=== PATIENT | male | born 1980 | race Caucasian/White ===

== ENCOUNTER 2016-09-26 11:28 | Emergency (ER) | payer MEDICAID ==
[~2016-09-26] VITALS: Ht 175.3 cm; Wt 95.3 kg
[~2016-09-26 11:28] MED LIST: ALBUTEROL-200 PUFFS/ IH; MOTRIN800 MG PO; NOMEDS; SEPTRA DS 800 M1 TAB PO; SULFAMETHOXAZOL1 TA6 PO; TESSALON PERLE100 MG PO; ZITHROMAX 250M250 MG PO
[2016-09-26] MEDS ORDERED: KEFLEX 500MG.500 MG PO (12:05)
--- NOTE | 2016-09-26 12:06 | Emergency Room Report ---
History of Present Illness Time Seen by MD Hernandez Presenting Problem in Triage Pt arrived:Walked Presenting Problem:PT HAS LAC TO TOP OF RIGHT HAND. 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 N Clinical Suspician of Infection? N Mental Status: 1 - Regular (Normal Baseline) Sepsis Risk:Low Sepsis Risk Have you (or family members/close friends) recently traveled outside the [place]? N If Yes, where/when: Have you had exposure to infectious disease within the past month? N TB? Other? 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 No loss of movement or sensation. Came to the ED immediately for stitches. Source patient, RN notes reviewed, family Exam Limitations no limitations ALLERGIES Coded Allergies: No Known Allergies (06/27/16) Home Medications Active Scripts Azithromycin (Zithromax 250 Mg) 250 MG PO DAILY #4 TAB Prov: 12/11/14 BENZONATATE (Benzonatate) 100 MG PO BID #20 CAP Prov: 12/11/14 Reported Medications Albuterol (Albuterol-Hfa Inhaler) 1 PUFF IH Q4HP PRN BREATHING History Medical History General CAD? No Angina: No [place]: No Hypertension? No Hyperlipidemia? No CHF? No DVT? No PE? No COPD? No Asthma? Yes Anemia? No GERD? No Gastric ulcers? No GI Bleed? No Hernia? No Thyroid Problems? No Hypothyroidism? No CVA? No Seizures? No Diabetes? No Renal Insuffiency? No End Stage Renal Disease? No UTI? No Stones? No BPH? No GB Disease: No Nephritic Syndrome? No Asplenia? No Hepatitis? No Sickle Cell Disease? No Arthritis? No Migraines? No Cataracts? No Glaucoma? No MRSA? No HIV? No TB? No Anxiety? No Depression? No Cancer? No Immunization Hx DT/Tetanus 1-4 YRS Surgical Hx Previous Surgery?N Social History Smoking Hx Smoker: Former Smoker Tobacco: Yes Type Cigarettes Packs/day < 1 Pack Alcohol Alcohol: No Review of Systems All Other Systems Reviewed and Negative Constitutional no symptoms reported Eyes no symptoms reported ENT no symptoms reported. Respiratory no symptoms reported Cardiovascular no symptoms reported Gastrointestinal no symptoms reported Genitourinary no symptoms reported. Musculoskeletal no symptoms reported Skin see HPI Psychiatric/Neurological no symptoms reported Physical Exam Vital Signs Vital Signs Date Time Temp Pulse Resp B/P Pulse O2 O2 Flow FiO2 Ox Delivery Rate 09/26 1158 58 18 141/72 97 09/26 1132 98.4 69 18 140/70 97 - WBC >12,000 or <4,000 or 10% bands? 2 or more SIRS Criteria Met? B/P:141/72 MAP:93 Creatinine >2.0? UA output<0.5ml/kg/hr for 2 hrs? Platelet count >100,000? Lactate >2.0mmol/1? INR >1.2 or PTT > than 60 sec? Evidence of Organ Dysfunction? Provider documented clinical suspician of infection? N Sepsis Criteria Count: 0 Sepsis Risk: Low Sepsis Risk General Appearance normal appearance, WD/WN Eye Exam - bilateral eye normal exam, bilateral eye PERRL, bilateral eye EOMI Ear, Nose, Throat hearing grossly normal, normal ENT inspection Neck normal inspection, non-tender, supple, full range of motion Respiratory Status Yes: trachea midline, chest symmetrical, non tender chest. No: respiratory distress. Lung Sounds bilateral: normal breath sounds, lungs clear. 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 Medical Decision Making LABS/Meds/Orders Pt receiving controlled substance in ED? No Results/Orders Current Medication Orders Sig/George Start time Last Medication Dose Route Stop Time Status Admin Ondansetron HCl 0 .STK-MED ONE 09/26 1156 DC .ROUTE Lidocaine HCl 0 .STK-MED ONE 09/26 1140 DC .ROUTE Departure Departure Time of Disposition 1203 Disposition DC Home or Self Care(routine) Clinical Impression Primary Impression: Laceration of hand without complication, excluding fingers Condition STABLE Referrals Brandy Chin MD Additional Instructions 1- off work 2 days 2- wound recheck with dr stock in 2 days. 3- rest, ice and elevation. 4- start abx 5- return if fever or rash. Discharge Counseling Counseled pt/family regarding diagnosis, test results, medications/RX, home care, follow up needs Prescriptions Current Visit Scripts CEPHALEXIN (Keflex 500MG Capsule) 500 MG PO Q8 #21 CAP ED Critical Care Critical Care No If Critical Care minutes are documented, the time involved in the performance of seperately reportable procedures was not counted toward critical care time documented. I directly delivered medical care to this critically ill and/or injured patient. Timely evaluation and treatment was necessary to address the significant organ system(s) dysfunction present in this patient. at 1206
[2016-09-26 12:21] VITALS: BP 141/72
--- OUTSIDE RECORDS SUMMARY | 2016-09-26 22:09 | External Medical Summary Rpt ---
Author Author , WOODROW TROY Address Unknown Phone Care Team Providers Care Experience Designer Name Role Phone HOLDEN CANELA Unavailable Unavailable MAXX HOLDEN MAXX, ARNOLD Unavailable Unavailable MAXX ARY JAIMES MD, Unavailable Unavailable ARY TATE MD, Unavailable Unavailable DIOGENES TATE MD [facility] Unavailable Unavailable INC, [facility] Unavailable Unavailable PLLC, [facility] SOTINGEANU, Unavailable Unavailable SOTINGEANU SOTINGEANU MARLO, Unavailable Unavailable SOTINGEANU MARLO Purpose Continuity of Care Document - 05-29-2012 through 2016 Problems Code Diagnosis DOS Provider Status A084 VIRAL 06-27-2016 [place] INTESTINAL [facility] INFECTION INC UNSPECIFIED B349 VIRAL 06-27-2016 [facility]PEC[facility]IED [facility] L259 UNSPECIFIED 09-01-2015 HOLDEN MAXX CONTACT DERMATITIS UNSPECIFIED CAUSE M779 ENTHESOPATH 09-01-2015 HOLDEN LILLY Y UNSPECIFIED [id number] UNSPECIFIED 04-25-2015 HOLDEN MAXX ASTHMA WITH STATUS ASTHMATICUS K589 IRRITABLE 04-25-2015 HOLDEN MAXX BOWEL SYNDROME WITHOUT DIARRHEA J209 ACUTE 12-11-2014 [place] BRONCHITIS [facility] UNSPECIFIED INC J40 BRONCHITIS 12-11-2014 [facility] SPEC[facility]IED PLL[facility] ACUTE OR CHRONIC Z720 TOBACCO USE 12-11-2014 [facility] INC 60313 ASTHMA 10-29-2013 HOLDEN MAXX UNSPECIFIED WITH STATUS ASTHMATICUS 354.0 354.0 12-06-2012 [facility] SYNDROME 493.90 493.90 12-06-2012 [place] ASTHMA, [facility] 787.91 787.91 05-29-2012 [facility] Allergies, Adverse Reactions, Alerts Type Allergy to substance Adverse Reaction to Substance Substance Reaction Severity NO KNOWN ALLERGIES Unknown Unknown Clinical Alert Notifications Alert Asthma: no influenza vaccine in the last 365 days Medications Na ND Rx Da Fi Fi Am Da Di Ph RX Ph St me C No te ll ll ou ys ag ar # ys at rm s nt no ma ic us Or Da si cy ia de te s n re d DI 00 02 03 12 30 00 EA Ac CY 37 -2 -[address] ti CL 81 5- 4- 00 00 SI ve OM 61 20 20 0 43 DE IN 00 17 17 50 E 5 94 PH 10 AR MA MG CY CA OF PS CY UL NT E HI AN A IN C DI 00 12 01 12 30 00 EA Ac CY 37 -2 -[address] ti CL 81 2- 7- 00 00 SI ve OM 61 20 20 0 43 DE IN 00 16 17 50 E 5 94 PH 10 AR MA MG CY CA OF PS CY UL NT E HI AN A IN C Vital Signs 12-06-2012 08:34 Name Value Interpretat Reference Comment ion Range BP 69 mm[Hg] Diastolic BP Systolic 107 mm[Hg] Heart 62 /min Rate/Pulse O2% 99 % Respiratory 20 /min Rate 12-06-2012 08:33 Name Value Interpretat Reference Comment ion Range BP 69 mm[Hg] Diastolic BP Systolic 107 mm[Hg] Heart 62 /min Rate/Pulse O2% 99 % Respiratory 20 /min Rate 05-29-2012 14:44 Name Value Interpretat Reference Comment ion Range BP 70 mm[Hg] Diastolic BP Systolic 110 mm[Hg] Heart 63 /min Rate/Pulse O2% 97 % Respiratory 18 /min Rate 05-29-2012 13:29 Name Value Interpretat Reference Comment ion Range BP 68 mm[Hg] Diastolic BP Systolic 118 mm[Hg] Heart 72 /min Rate/Pulse O2% 97 % Respiratory 18 /min Rate Procedures Procedure DOS Code Location Performer Comment CUL BACT 49141 [facility]T [facility] URINE INC INC BLOOD/STO OL AEROBIC ISOL UNCLASSIF J3490 [facility] IED DRUGS 7 [facility] INC INC IAADI 21033 [facility] INFLUENZA 7 [facility] B VIRUS INC INC IAADI 71564 [facility] INFFLUENZ 7 [facility] [place] [address] RASHEEDA VANESSA STREPTOCO 7 [facility] CCUS INC INC GROUP A INJ J0702 HOLDEN HATCH BETAMETHA 6 MAXX MAXX SONE ACETATE & PHOSPHATE 3 MG RADIOLOGI 33612 [facility]EDA VANESSA C EXAM 5 [facility] CHEST 2 INC INC VIEWS FRONTAL&L ATERAL UNCLASSIF J3490 [facility] IED DRUGS 5 [facility] INC INC APPLICATI 93.54 ARY ON ATIF GAGE SPLINT Encounters Encounter Start End Date Code Location Performer Type Date EMERGENCY 46184 [facility] 7 7 [facility] T VISIT LOW/MODER SEVERITY HOSPITAL RAS[facility]EDA - 7 7 [facility] OUTPATIEN INC T EMERGENCY 85355 MARSHAL MARES 7 7 PHYSICIAN U [facility] S, [facility] T VISIT HIGH/URGE NT SEVERITY OFFICE 45780 HOLDEN HATCH OUTPATIEN 6 6 MAXX MAXX T VISIT 15 MINUTES OFFICE 55323 HOLDEN HATCH OUTPATIEN 6 6 MAXX MAXX T VISIT 15 MINUTES EMERGENCY 70966 MARSHAL MARES 5 5 PHYSICIAN U MARLO [facility] S, [facility] T VISIT MODERATE SEVERITY EMERGENCY 18759 [facility] 5 5 [facility] T VISIT LOW/MODER SEVERITY HOSPITAL RAS[facility]A - 5 5 [facility] OUTPATIEN INC T OFFICE 33243 HOLDEN SHERWOOD 4 4 MAXX MAXX T NEW 30 MINUTES Emergency KEYUR JAIMES MD (ER) 3 08:19 3 08:34 [facility] Emergency KEYUR TATE MD (ER) 3 13:09 3 14:45 [facility]
--- OUTSIDE RECORDS SUMMARY | 2016-09-26 22:09 | External Medical Summary Rpt ---
Author Author , WOODROW TROY Address Unknown Phone [email or web address] Care Team Providers Care Sales Representative Cash Registers Name Role Phone HOLDEN CANELA Unavailable Unavailable MAXX HOLDEN MAXX, ARNOLD Unavailable Unavailable MAXX ARY JAIMES MD, Unavailable Unavailable ARY TATE MD, Unavailable Unavailable DIOGENES TATE MD [facility] Unavailable Unavailable INC, [facility] Unavailable Unavailable PLLC, [facility] SOTINGEANU, Unavailable Unavailable SOTINGEANU SOTINGEANU MARLO, Unavailable Unavailable SOTINGEANU MARLO Purpose Continuity of Care Document - 05-29-2012 through 2016 Problems Code Diagnosis DOS Provider Status A084 VIRAL 06-27-2016 [place] INTESTINAL [facility] INFECTION INC UNSPECIFIED B349 VIRAL 06-27-2016 [facility]NSPEC[facility]IED [facility] L259 UNSPECIFIED 09-01-2015 HOLDEN MAXX CONTACT DERMATITIS UNSPECIFIED CAUSE M779 ENTHESOPATH 09-01-2015 HOLDEN LILLY Y UNSPECIFIED V85025 UNSPECIFIED 04-25-2015 HOLDEN MAXX ASTHMA WITH STATUS ASTHMATICUS K589 IRRITABLE 04-25-2015 HOLDEN MAXX BOWEL SYNDROME WITHOUT DIARRHEA J209 ACUTE 12-11-2014 [place] BRONCHITIS [facility] UNSPECIFIED INC J40 BRONCHITIS 12-11-2014 [facility] SPECIFIED PLL[facility] ACUTE OR CHRONIC Z720 TOBACCO USE 12-11-2014 [facility] INC 16505 ASTHMA 10-29-2013 HOLDEN MAXX UNSPECIFIED WITH STATUS ASTHMATICUS 354.0 354.0 12-06-2012 [facility] SYNDROME 493.90 493.90 12-06-2012 [place] ASTHMA, [facility] 787.91 787.91 05-29-2012 [facility] Allergies, Adverse Reactions, Alerts Type Allergy to [...] DOS Code Location Performer Comment CUL BACT 06539 [facility] XCPT 7 [facility] URINE INC INC BLOOD/STO OL AEROBIC ISOL UNCLASSIF J3490 [facility] IED DRUGS 7 [facility] INC INC IAADI 86304 [facility] V[facility]SA INFLUENZA 7 [facility] B VIRUS INC INC IAADI 97724 [facility] V[facility] INFFLUENZ 7 [facility] [place] [address] RASHEEDA VANESSA STREPTOCO 7 [facility] H[facility] CCUS INC INC GROUP A INJ J0702 HOLDEN HATCH BETAMETHA 6 MAXX MAXX SONE ACETATE & PHOSPHATE 3 MG RADIOLOGI 69936 RASHEEDA VANESSA C EXAM 5 [facility] CHEST 2 INC INC VIEWS FRONTAL&L ATERAL UNCLASSIF J3490 RAS[facility]A VANESSA IED DRUGS 5 [facility] INC INC APPLICATI 93.54 ARY ON ATIF GAGE SPLINT Encounters Encounter Start End Date Code Location Performer Type Date EMERGENCY 36889 [facility] 7 7 [facility] T VISIT LOW/MODER SEVERITY HOSPITAL RAS[facility]A - 7 7 [facility] OUTPATIEN INC T EMERGENCY 24395 MARSHAL MARES 7 7 PHYSICIAN U [facility] S, [facility] T VISIT HIGH/URGE NT SEVERITY OFFICE 47374 HOLDEN HATCH OUTPATIEN 6 6 MAXX MAXX T VISIT 15 MINUTES OFFICE 78412 HOLDEN HATCH OUTPATIEN 6 6 MAXX MAXX T VISIT 15 MINUTES EMERGENCY 67904 MARSHAL MARES 5 5 PHYSICIAN U MARLO [facility] S, [facility] T VISIT MODERATE SEVERITY EMERGENCY 55889 [facility] 5 5 [facility] T VISIT LOW/MODER SEVERITY HOSPITAL RASHEEDA - 5 5 [facility] OUTPATIEN INC T OFFICE 22581 HOLDEN SHERWOOD 4 4 MAXX MAXX T NEW 30 MINUTES Emergency KEYUR JAIMES MD (ER) 3 08:19 3 08:34 [facility] Emergency KEYUR TATE MD (ER) 3 13:09 3 14:45 [facility]
--- OUTSIDE RECORDS SUMMARY | 2016-09-26 22:09 | External Medical Summary Rpt ---
Author Author , WOODROW TROY Address Unknown Phone [email or web address] Care Team Providers Care Sewing Machine Operator Paper Bags Name Role Phone HOLDEN MAXX, HOLDEN Unavailable Unavailable MAXX HOLDEN MAXX, HOLDEN Unavailable Unavailable MAXX [facility] Un[facility], Unavailable Unavailable PLL[facility], [facility] SOTINGEANU, Unavailable Unavailable SOTINGEANU SOTINGEANU MARLO, Unavailable Unavailable SOTINGEANU MARLO Purpose Continuity of Care Document - 10-29-2013 through 2016 Problems Code Diagnosis DOS Provider Status A084 VIRAL 06-27-2016 [facility] [facility] INFECTION INC UNSPECIFIED B349 VIRAL 06-27-2016 [facility]NSPEC[facility]IED PLLC L259 UNSPECIFIED 09-01-2015 HOLDEN LILLY CONTACT DERMATITIS UNSPECIFIED CAUSE M779 ENTHESOPATH 09-01-2015 HOLDEN LILLY Y UNSPECIFIED P52145 UNSPECIFIED 04-25-2015 HOLDEN LILLY ASTHMA WITH STATUS ASTHMATICUS K589 IRRITABLE 04-25-2015 HOLDEN LILLY BOWEL SYNDROME WITHOUT DIARRHEA J209 ACUTE 12-11-2014 [place] BRONCHITIS [facility] UNSPECIFIED INC J40 BRONCHITIS 12-11-2014 [facility] SPECIFIED PLLC ACUTE OR CHRONIC Z720 TOBACCO USE 12-11-2014 [facility] INC 97817 ASTHMA 10-29-2013 HOLDEN LILLY UNSPECIFIED WITH STATUS ASTHMATICUS Medications Na ND Rx Da Fi Fi [...] NT E HI AN A IN C Procedures Procedure DOS [place] [address] RAS[facility] STREPTOCO 7 [facility] CCUS INC INC GROUP A UNCLASSIF J3490 [facility] IED DRUGS 7 [facility] INC INC CUL BACT 42737 RAS[facility]A VANESSA XCPT 7 [facility] URINE INC INC BLOOD/STO OL AEROBIC ISOL IAADI 37260 RAS[facility]A VAN[facility]SA INFLUENZA 7 [facility] B VIRUS INC INC IAADI 66776 RAS[facility] VANESSA INFFLUENZ 7 [facility] A A VIRUS INC INC INJ J0702 HOLDEN HATCH BETAMETHA 6 MAXX MAXX SONE ACETATE & PHOSPHATE 3 MG UNCLASSIF J3490 [facility]ANESSA IED DRUGS 5 [facility] INC INC RADIOLOGI 26278 RASHEEDA VANESSA C EXAM 5 [facility] CHEST 2 INC INC VIEWS FRONTAL&L ATERAL Encounters Encounter Start End Date Code Location Performer Type Date EMERGENCY 54256 MARSHAL MARES 7 7 PHYSICIAN U [facility], [facility] T VISIT HIGH/URGE NT SEVERITY HOSPITAL [facility] - 7 7 [facility] T EM[facility] 40291 [facility]A 7 7 [facility] T VISIT LOW/MODER SEVERITY OFFICE 55564 HOLDEN SANDERSEN 6 6 MAXX MAXX T VISIT 15 MINUTES OFFICE 71635 HOLDEN SHERWOOD 6 6 MAXX MAXX T VISIT 15 MINUTES EMERGENCY 05770 MARSHAL MARES 5 5 PHYSICIAN U MARLO [facility] T VISIT MODERATE SEVERITY HOSPITAL RAS[facility]EDA - 5 5 [facility] 32568 [facility] T VISIT LOW/MODER SEVERITY OFFICE 09708 HOLDEN SHERWOOD 4 4 MAXX MAXX T NEW 30 MINUTES
--- OUTSIDE RECORDS SUMMARY | 2016-09-26 22:09 | External Medical Summary Rpt ---
Author Author , WOODROW TROY Address Unknown Phone [email or web address] Providers Care Fugitive Investigator Name Role Phone HOLDEN MAXX, HOLDEN Unavailable Unavailable MAXX HOLDEN MAXX, HOLDEN Unavailable Unavailable MAXX [facility] Unavailable Unavailable INC, [facility] Unavailable Unavailable PLL[facility], [facility] SOTINGEANU, Unavailable Unavailable SOTINGEANU SOTINGEANU MARLO, Unavailable Unavailable SOTINGEANU MARLO Purpose Continuity of Care Document - 10-29-2013 through 2016 Problems Code Diagnosis DOS Provider Status A084 VIRAL 06-27-2016 [facility] [facility] INFECTION INC UNSPECIFIED B349 VIRAL 06-27-2016 [facility] UNSPECIFIED PLLC L259 UNSPECIFIED 09-01-2015 HOLDEN LILLY CONTACT DERMATITIS UNSPECIFIED CAUSE M779 ENTHESOPATH 09-01-2015 HOLDEN LILLY Y UNSPECIFIED [id number] UNSPECIFIED 04-25-2015 HOLDEN LILLY ASTHMA WITH STATUS ASTHMATICUS K589 IRRITABLE 04-25-2015 HOLDEN LILLY BOWEL SYNDROME WITHOUT DIARRHEA J209 ACUTE 12-11-2014 [place] BRONCHITIS [facility] UNSPECIFIED INC J40 BRONCHITIS 12-11-2014 [facility], SPECIFIED PLLC ACUTE OR CHRONIC Z720 TOBACCO USE 12-11-2014 [facility] INC 33331 ASTHMA 10-29-2013 HOLDEN LILLY UNSPECIFIED WITH STATUS [...] DOS [place] [address] RASHEEDA VANESSA STREPTOCO 7 [facility] CCUS INC INC GROUP A UNCLASSIF J3490 [facility] IED DRUGS 7 [facility] INC INC CUL BACT 55277 RASHEEDA VANESSA XCPT 7 [facility] URINE INC INC BLOOD/STO OL AEROBIC ISOL IAADI 58461 [facility] VANESSA INFLUENZA 7 [facility] B VIRUS INC INC IAADI 50283 RASHEEDAKARTIK VANESSA INFFLUENZ 7 [facility] A A VIRUS INC INC INJ J0702 HOLDEN HATCH BETAMETHA 6 MAXX MAXX SONE ACETATE & PHOSPHATE 3 MG UNCLASSIF J3490 [facility]A [facility]ANESSA IED DRUGS 5 [facility] INC INC RADIOLOGI 77316 RASHEEDA VANESSA C EXAM 5 [facility] CHEST 2 INC INC VIEWS FRONTAL&L ATERAL Encounters Encounter Start End Date Code Location Performer Type Date EMERGENCY 46773 MARSHAL MARES 7 7 PHYSICIAN U [facility] S, [facility] T VISIT HIGH/URGE NT SEVERITY HOSPITAL [facility] - 7 7 [facility] T EMERGENCY 98886 RASHEEDA 7 7 [facility] T VISIT LOW/MODER SEVERITY OFFICE 57261 HOLDEN SANDERSEN 6 6 MAXX MAXX T VISIT 15 MINUTES OFFICE 14151 HOLDEN SHERWOOD 6 6 MAXX MAXX T VISIT 15 MINUTES EMERGENCY 87262 MARSHAL MARES 5 5 PHYSICIAN U MARLO [facility] T VISIT MODERATE SEVERITY HOSPITAL RASHEEDA - 5 5 [facility] T EM[facility] 38324 [facility] 5 5 [facility] T VISIT LOW/MODER SEVERITY OFFICE 42593 HOLDEN SHERWOOD 4 4 MAXX MAXX T NEW 30 MINUTES
--- OUTSIDE RECORDS SUMMARY | 2016-09-26 22:10 | External Medical Summary Rpt ---
Author Author WOODORW Howe, WOODROW Howe Organization [employer] Address Unknown Phone Unavailable
--- OUTSIDE RECORDS SUMMARY | 2016-09-26 22:10 | External Medical Summary Rpt ---
Author Author , WOODROW TROY Address Unknown Phone [email or web address] Immunization Name Date Rout CVX Reac Dose Comm Prov Is Faci e tion ent ider Refu lity Give sed n Hep 12-0 42 999 Hist H109 No H109 B, 2-19 ori adol 97 al Info High rmat Ris ion - Sour ce Unsp ecif ied Hep 10-2 42 999 Hist H109 No H109 B, 8-19 oric adol 97 al Info High rmat Ris ion - Sour ce Unsp ecif ied Td 10-2 9 999 Hist H109 No H109 (heraclio 8- ori lt), 97 al Info adso rmat rbed ion - Sour ce Unsp ecif ied
--- OUTSIDE RECORDS SUMMARY | 2016-09-26 22:10 | External Medical Summary Rpt ---
Author Author , WOODROW TROY Address Unknown Phone [email or web address] Immunization Name Date Rout CVX Reac Dose [...]
--- OUTSIDE RECORDS SUMMARY | 2016-09-26 22:10 | External Medical Summary Rpt ---
Author Author WOODROW Howe, WOODROW Howe Organization [employer] Address Unknown Phone Unavailable
== END 2016-09-26 12:22 | disposition home or self-care (01) ==
LOC: ER 11:28
PROC: 0HQFXZZ Repair Right Hand Skin, External Approach (ICD-10-PCS; principal; 2016-09-26)
DX: S61.411A Laceration without foreign body of right hand, initial encounter (principal); W26.8XXA Contact with other sharp object(s), not elsewhere classified, initial encounter; Y92.009 Unspecified place in unspecified non-institutional (private) residence as the place of occurrence of the external cause

== ENCOUNTER 2016-10-04 11:40 | Emergency (ER) | payer MEDICAID ==
[~2016-10-04 11:40] MED LIST changes: +KEFLEX 500MG.500 MG PO
--- OUTSIDE RECORDS SUMMARY | 2016-10-04 11:44 | External Medical Summary Rpt ---
Author Author , WOODROW TROY Address Unknown Phone Care Team Providers Care Petroleum Production Engineer Name Role Phone HOLDEN CANELA Unavailable Unavailable MAXX ARNARGENTINA MAXX, ARNOLD Unavailable Unavailable MAXX ARY JAIMES MD, Unavailable Unavailable ARY TATE MD, Unavailable Unavailable DIOGENES TATE MD [facility] Unavailable Unavailable INC, [facility] Unavailable Unavailable PLL[facility], [facility] SOTINGEANU, Unavailable Unavailable SOTINGEANU SOTINGEANU MARLO, Unavailable Unavailable SOTINGEANU MARLO Purpose Continuity of Care Document - 05-29-2012 through 2016 Problems Code Diagnosis DOS Provider Status A084 VIRAL 06-27-2016 [place] INTESTINAL [facility] INFECTION INC UNSPECIFIED B349 VIRAL 06-27-2016 [facility]PEC[facility] L259 UNSPECIFIED 09-01-2015 HOLDEN MAXX CONTACT DERMATITIS UNSPECIFIED CAUSE M779 ENTHESOPATH 09-01-2015 HOLDEN LILLY Y UNSPECIFIED [id number] UNSPECIFIED 04-25-2015 HOLDEN MAXX ASTHMA WITH STATUS ASTHMATICUS K589 IRRITABLE 04-25-2015 HOLDEN MAXX BOWEL SYNDROME WITHOUT DIARRHEA J209 ACUTE 12-11-2014 [place] [facility] UNSPECIFIED INC J40 BRONCHITIS 12-11-2014 [facility], SPECIFIED PLLC ACUTE OR CHRONIC Z720 TOBACCO USE 12-11-2014 [facility] INC 79509 ASTHMA 10-29-2013 HOLDEN MAXX UNSPECIFIED WITH STATUS ASTHMATICUS 354.0 354.0 12-06-2012 [facility] SYNDROME 493.90 493.90 12-06-2012 [place] ASTHMA, [facility] 787.91 787.91 05-29-2012 [place] DIARRHEA [facility] B34.9 VIRAL INFECTION, UNSPECIFIED J40 BRONCHITIS, NOT SPECIFIED ACUTE OR CHRONIC S61.419A LACERATION WITHOUT FOREIGN BODY OF UNSP HAND, INIT ENCNTR Allergies, Adverse Reactions, Alerts Type Allergy to [...] Procedures Procedure DOS Code Location Performer Comment IAA 57420 RASHEEDA V[facility] INFLUENZA 7 [facility] B VIRUS INC INC IAADI 47082 RASHEEDA VANESSA INFFLUENZ 7 [facility] [place] [address] RASHEEAD VANESSA STREPTOCO 7 [facility] CCUS INC INC GROUP A CUL BACT 46389 RASHEEDA VANESSA XCPT 7 [facility] URINE INC INC BLOOD/STO OL AEROBIC ISOL UNCLASSIF J3490 RASHEEDA VANESSA IED DRUGS 7 [facility] INC INC INJ J0702 HOLDEN HOLDEN BETAMETHA 6 MAXX MAXX SONE ACETATE & PHOSPHATE 3 MG UNCLASSIF J3490 RASHEEDA VANESSA IED DRUGS 5 [facility] INC INC RADIOLOGI 70437 RASHEEDA VANESSA C EXAM 5 [facility] CHEST 2 [facility] INC VIEWS FRONTAL&L ATERAL APPLICATI 93.54 ARY ON OF [place] GAGE SPLINT Encounters Encounter Start End Date Code Location Performer Type Date HOSPITAL [facility] - 7 7 [facility] 23955 RASHEEDA 7 7 [facility] T VISIT LOW/MODER SEVERITY EMERGENCY 58778 MARSHAL MARES 7 7 PHYSICIAN U DEPARTMEN S, PLLC T VISIT HIGH/URGE NT SEVERITY OFFICE 17244 HOLDEN ADAMSPATIGENE 6 6 MAXX MAXX T VISIT 15 MINUTES OFFICE 23759 HOLDEN [place] 6 6 MAXX MAXX T VISIT 15 MINUTES EMERGENCY 80061 [facility] T VISIT LOW/MODER SEVERITY HOSPITAL RASHEEDA - 5 5 [facility] OUTPATIEN INC T EMERGENCY 04847 MARSHAL MARES 5 5 [facility] T VISIT MODERATE SEVERITY OFFICE 32234 HOLDEN [place] 4 4 MAXX MAXX T NEW 30 MINUTES Emergency KEYUR JAIMES MD (ER) 3 08:19 3 08:34 [facility] Emergency KEYUR TATE MD (ER) 3 13:09 3 14:45 [facility]
--- OUTSIDE RECORDS SUMMARY | 2016-10-04 11:44 | External Medical Summary Rpt ---
Author Author , WOODROW TROY Address Unknown Phone Care Team Providers Care Interior Design Professor Name Role Phone HOLDEN CANELA Unavailable Unavailable MAXX ARNARGENTINA MAXX, ARNOLD Unavailable Unavailable MAXX ARY JAIMES MD, Unavailable Unavailable ARY TATE MD, Unavailable Unavailable DIOGENES TATE MD [facility] Unavailable Unavailable INC, RAS[facility]EDA [facility], Unavailable Unavailable PLLC, [facility] SOTINGEANU, Unavailable Unavailable SOTINGEANU SOTINGEANU MARLO, Unavailable Unavailable SOTINGEANU MARLO Purpose Continuity of Care Document - 05-29-2012 through 2016 Problems Code Diagnosis DOS Provider Status A084 VIRAL 06-27-2016 [place] INTESTINAL [facility] INFECTION INC UNSPECIFIED B349 VIRAL 06-27-2016 [facility]NSPEC[facility]IED [facility]C L259 UNSPECIFIED 09-01-2015 HOLDEN MAXX CONTACT DERMATITIS UNSPECIFIED CAUSE M779 ENTHESOPATH 09-01-2015 HOLDEN LILLY Y UNSPECIFIED [id number] UNSPECIFIED 04-25-2015 HOLDEN MAXX ASTHMA WITH STATUS ASTHMATICUS K589 IRRITABLE 04-25-2015 HOLDEN MAXX BOWEL SYNDROME WITHOUT DIARRHEA J209 ACUTE 12-11-2014 [place] [facility] UNSPECIFIED INC J40 BRONCHITIS 12-11-2014 [facility] SPECIFIED PLLC ACUTE OR CHRONIC Z720 TOBACCO USE 12-11-2014 [facility] INC 73898 ASTHMA 10-29-2013 HOLDEN MAXX UNSPECIFIED WITH STATUS ASTHMATICUS 354.0 354.0 12-06-2012 [facility] SYNDROME 493.90 493.90 12-06-2012 [place] ASTHMA, [facility] 787.91 787.91 05-29-2012 [place] DIARRHEA [facility] B34.9 VIRAL INFECTION, UNSPECIFIED J40 BRONCHITIS, NOT [...] Procedure DOS Code Location Performer Comment IAA 68658 RASHEEDA VANESSA INFLUENZA 7 [facility] B VIRUS INC INC IAADI 21529 RASHEEDA VANESSA INFFLUENZ 7 [facility] [place] [address] RASHEEDA VANESSA STREPTOCO 7 [facility] CCUS INC INC GROUP A CUL BACT 86627 RASHEEDA VANESSA XCPT 7 [facility] URINE INC INC BLOOD/STO OL AEROBIC ISOL UNCLASSIF J3490 RASHEEDA VANESSA IED DRUGS 7 [facility] INC INC INJ J0702 HOLDEN HOLDEN BETAMETHA 6 MAXX MAXX SONE ACETATE & PHOSPHATE 3 MG UNCLASSIF J3490 RASHEEDA VANESSA IED DRUGS 5 [facility] INC INC RADIOLOGI 26642 RASHEEDA VANESSA C EXAM 5 [facility] CHEST 2 [facility] INC VIEWS FRONTAL&L ATERAL APPLICATI 93.54 [place]Y ON [place] GAGE SPLINT Encounters Encounter Start End Date Code Location Performer Type Date HOSPITAL RASHEEDA - 7 7 [facility] 16546 RASHEEDA 7 7 [facility] T VISIT LOW/MODER SEVERITY EMERGENCY 11158 MARSHAL MARES 7 7 PHYSICIAN U [facility]PART[facility], PLL[facility] T VISIT HIGH/URGE NT SEVERITY OFFICE 17007 HOLDEN ADAMSPATIGENE 6 6 MAXX MAXX T VISIT 15 MINUTES OFFICE 85252 HOLDEN [place] 6 6 MAXX MAXX T VISIT 15 MINUTES EMERGENCY 61171 [facility] 5 [facility] T VISIT LOW/MODER SEVERITY HOSPITAL RASHEEDA - 5 5 [facility] OUTPATIEN INC T EMERGENCY 62489 MARSHAL MARES 5 5 [facility] VISIT MODERATE SEVERITY OFFICE 70503 HOLDEN [place] 4 4 MAXX MAXX T NEW 30 MINUTES Emergency KEYUR JAIMES MD (ER) 3 08:19 3 08:34 [facility] Emergency KEYUR TATE MD (ER) 3 13:09 3 14:45 [facility]
--- OUTSIDE RECORDS SUMMARY | 2016-10-04 11:44 | External Medical Summary Rpt ---
Author Author , WOODROW TROY Address Unknown Phone [email or web address] Care Team Providers Care Apparel Stock Checker Name Role Phone HOLDEN MAXX, HOLDEN Unavailable Unavailable MAXX HOLDEN MAXX, HOLDEN Unavailable Unavailable MAXX [facility] Un[facility] INC, [facility] Unavailable Unavailable PLL[facility], [facility] SOTINGEANU, Unavailable Unavailable SOTINGEANU SOTINGEANU MALRO, Unavailable Unavailable SOTINGEANU MARLO Purpose Continuity of Care Document - 10-29-2013 through 2016 Problems Code Diagnosis DOS Provider Status A084 VIRAL 06-27-2016 [facility] [facility] INFECTION INC UNSPECIFIED B349 VIRAL 06-27-2016 [facility] UNSPECIFIED PLLC L259 UNSPECIFIED 09-01-2015 HOLDEN LILLY CONTACT DERMATITIS UNSPECIFIED CAUSE M779 ENTHESOPATH 09-01-2015 HOLDEN LILLY Y UNSPECIFIED H14146 UNSPECIFIED 04-25-2015 HOLDEN LILLY ASTHMA WITH STATUS ASTHMATICUS K589 IRRITABLE 04-25-2015 HOLDEN LILLY BOWEL SYNDROME WITHOUT DIARRHEA J209 ACUTE 12-11-2014 [place] BRONCHITIS [facility] UNSPECIFIED INC J40 BRONCHITIS 12-11-2014 [facility] NOT [facility]ICIANS, SPECIFIED PLLC ACUTE OR CHRONIC Z720 TOBACCO USE 12-11-2014 [facility]OS[facility] INC 94030 ASTHMA 10-29-2013 HOLDEN LILLY UNSPECIFIED WITH STATUS [...] DOS [place] [address] RASHEEDA DAVISON STREPTOCO 7 [facility] CCUS INC INC GROUP A CUL BACT 10377 RASHEEDA VANESSA XCPT 7 [facility] URINE INC INC BLOOD/STO OL AEROBIC ISOL UNCLASSIF J3490 RASHEEDA DAVISON IED DRUGS 7 [facility] INC INC IAADI 91412 RASHEEDA VANESSA INFLUENZA 7 [facility] B VIRUS INC INC IAADI 69852 RASHEEDA VANESSA INFFLUENZ 7 [facility] A A VIRUS INC INC INJ J0702 HOLDEN HATCH BETAMETHA 6 MAXX MAXX SONE ACETATE & PHOSPHATE 3 MG UNCLASSIF J3490 RASHEEDA DAVISON IED DRUGS 5 [facility] RADIOLOGI 31139 RASHEEDA RASHEEDA C EXAM 5 [facility] CHEST 2 INC INC VIEWS FRONTAL&L ATERAL Encounters Encounter Start End Date Code Location Performer Type Date EMERGENCY 56859 RASHEEDA 7 7 [facility] T VISIT LOW/MODER SEVERITY EMERGENCY 86371 MARSHAL MARES 7 7 PHYSICIAN U [facility] T VISIT HIGH/URGE NT SEVERITY HOSPITAL RASHEEDA - 7 7 [facility] T OFFICE 32429 HOLDEN [place]ER[place] 6 6 MAXX MAXX T VISIT 15 MINUTES OFFICE 28290 HOLDEN ADAMSPATIGENE 6 6 MAXX MAXX T VISIT 15 MINUTES EMERGENCY 89470 MARSHAL MARES 5 5 PHYSICIAN U [facility] T VISIT MODERATE SEVERITY EMERGENCY 79695 RASHEEDA 5 5 [facility] T VISIT LOW/MODER SEVERITY HOSPITAL RASHEEDA - 5 5 [facility] T OFFICE 55934 HOLDEN SHERWO[place] 4 4 MAXX MAXX T NEW 30 MINUTES
--- OUTSIDE RECORDS SUMMARY | 2016-10-04 11:44 | External Medical Summary Rpt ---
Author Author , WOODROW TROY Address Unknown Phone [email or web address] Care Team Providers Care Sap Crm Developer Name Role Phone HOLDEN MAXX, HOLDEN Unavailable Unavailable MAXX HOLDEN MAXX, HOLDEN Unavailable Unavailable MAXX [facility] Un[facility] Un[facility] INC, [facility] Unavailable Unavailable PLL[facility], [facility] SOTINGEANU, Unavailable Unavailable SOTINGEANU SOTINGEANU MARLO, Unavailable Unavailable SOTINGEANU MARLO Purpose Continuity of Care Document - 10-29-2013 through 2016 Problems Code Diagnosis DOS Provider Status A084 VIRAL 06-27-2016 [place] [facility] INFECTION INC UNSPECIFIED B349 VIRAL 06-27-2016 [facility] UNSPECIFIED PLLC L259 UNSPECIFIED 09-01-2015 HOLDEN LILLY CONTACT DERMATITIS UNSPECIFIED CAUSE M779 ENTHESOPATH 09-01-2015 HOLDEN LILLY Y UNSPECIFIED [id number] UNSPECIFIED 04-25-2015 HOLDEN LILLY ASTHMA WITH STATUS ASTHMATICUS K589 IRRITABLE 04-25-2015 HOLDEN LILLY BOWEL SYNDROME WITHOUT DIARRHEA J209 ACUTE 12-11-2014 [place] BRONCHITIS [facility] UNSPECIFIED INC J40 BRONCHITIS 12-11-2014 [facility], SPECIFIED PLLC ACUTE OR CHRONIC Z720 TOBACCO USE 12-11-2014 [facility] INC 33451 ASTHMA 10-29-2013 HOLDEN LILLY UNSPECIFIED WITH STATUS [...] DOS [place] [address] RASHEEDA DAVISON STREPTOCO 7 [facility] CCUS INC INC GROUP A CUL BACT 59656 RASHEEDA VANESSA XCPT 7 [facility] URINE INC INC BLOOD/STO OL AEROBIC ISOL UNCLASSIF J3490 RASHEEDA DAVISON IED DRUGS 7 [facility] INC INC IAADI 36274 RASHEEDA VANESSA INFLUENZA 7 [facility] B VIRUS INC INC IAADI 88270 RASHEEDA VANESSA INFFLUENZ 7 [facility] A A VIRUS INC INC INJ J0702 HOLDEN HATCH BETAMETHA 6 MAXX MAXX SONE ACETATE & PHOSPHATE 3 MG UNCLASSIF J3490 RASHEEDA DAVISON IED DRUGS 5 [facility] RADIOLOGI 87576 RASHEEDA RASHEEDA C EXAM 5 [facility] CHEST 2 INC INC VIEWS FRONTAL&L ATERAL Encounters Encounter Start End Date Code Location Performer Type Date EMERGENCY 60966 RASHEEDA 7 7 [facility] T VISIT LOW/MODER SEVERITY EMERGENCY 95024 MARSHAL MARES 7 7 PHYSICIAN U [facility] T VISIT HIGH/URGE NT SEVERITY HOSPITAL RASHEEDA - 7 7 [facility] T OFFICE 49625 HOLDEN [place]ER[place] 6 6 MAXX MAXX T VISIT 15 MINUTES OFFICE 38645 HOLDEN ADAMSPATIGENE 6 6 MAXX MAXX T VISIT 15 MINUTES EMERGENCY 02340 MARSHAL MARES 5 5 PHYSICIAN U [facility] T VISIT MODERATE SEVERITY EMERGENCY 80794 RASHEEDA 5 5 [facility] T VISIT LOW/MODER SEVERITY HOSPITAL RASHEEDA - 5 5 [facility] T OFF[facility] 74889 HOLDEN SHERWOOD 4 4 MAXX MAXX T NEW 30 MINUTES
--- OUTSIDE RECORDS SUMMARY | 2016-10-04 11:45 | External Medical Summary Rpt ---
Author Author , WOODROW TROY Address Unknown Phone [email or web address] Immunization Name Date Rout CVX Reac Dose Comm Prov Is Faci e tion ent ider Refu lity Give sed n Hep 12-0 42 999 Hist H109 No H109 B, 2-19 ori adol 97 al Info High rmat Ris ion - Sour ce Unsp ecif ied Td 10-2 9 999 Hist H109 No H109 (heraclio 8-19 oric lt), 97 al Info adso rmat rbed ion - Sour ce Unsp ecif ied Hep 10-2 42 999 Hist H109 No H109 B, 8-19 oric adol 97 al Info High rmat Ris ion - Sour ce Unsp ecif ied
--- OUTSIDE RECORDS SUMMARY | 2016-10-04 11:45 | External Medical Summary Rpt ---
Author Author , WOODROW TROY Address Unknown Phone [email or web address] [email or web address] Name Date Rout CVX Reac [...]
[2016-10-04 11:57] VITALS: BP 117/67
== END 2016-10-04 11:57 | disposition home or self-care (01) ==
LOC: UTC 11:40
DX: S61.411D Laceration without foreign body of right hand, subsequent encounter (principal)